=== PATIENT | male | born 1955 | race Caucasian/White ===

== ENCOUNTER 2020-01-08 07:25 | Outpatient (CLI) | payer OTHER, SELFPAY ==
--- NOTE | ~2020-01-08 | XR_ITS ---
EXAMINATION: XR lumbar spine 2-3V, XR thoracic spine 3V DATE: 01/08/2020 08:01 INDICATION: Chronic back pain, lumbago and sciatica. TECHNIQUE: 1. AP, lateral and lateral swimmers views of the thoracic spine were obtained. 2. AP and lateral views of the lumbar spine and cone-down lateral view of the lumbosacral junction we re obtained. COMPARISON: CT abdomen dated 05/20/2019 and chest radiograph dated 02/28/2014 FINDINGS: Thoracic spine: Alignment is normal. Chronic mild anterior wedging at T10-T12. Disc heights are normal. There are benson dging osteophytes at a few levels in the lower thoracic spine. Chronic elevation of the left hemidiap hragm. Lumbar spine: 7 degree lumbar levocurvature. Sagittal alignment is normal. Vertebral body heights are normal. Disc spaces are normal. Moderate lower lumbar facet osteoarthritis. Sacrum and bilateral sacroiliac joints are normal. Multiple phleboliths in the pelvis. Bilateral nephrolithiasis. IMPRESSION: 1. Chronic mild anterior wedging of a few lower thoracic vertebral bodies. No acute osseous abnormali ty. 2. Mild lumbar levocurvature with moderate lower lumbar facet osteoarthritis. 3. Bilateral nephrolithiasis. Reviewed, dictated and finalized at location A. IMPRESSION: 1. Chronic mild anterior wedging of a few lower thoracic vertebral bodies. No a cute osseous abnormality. 2. Mild lumbar levocurvature with moderate lower lumbar facet osteoarthritis. 3. Bilateral nephrolithiasis.
== END 2020-01-08 07:26 | disposition home or self-care (01) ==
PROVIDERS: PCP Internal Medicine; Visit Provider Internal Medicine
DX: M54.40 Lumbago with sciatica, unspecified side (principal); G89.29 Other chronic pain; N20.0 Calculus of kidney; M51.36 Other intervertebral disc degeneration, lumbar region
CPT/HCPCS: 72072; 72100

== ENCOUNTER 2021-02-24 23:48 | Emergency (ER) | payer OTHER, SELFPAY ==
[2021-02-24 23:57] VITALS: BP 178/88; PULSE 59; RESP 17; TEMP 36.4; O2SAT 100
[2021-02-25] MEDS: diazePAM INJ (*CRX) 10 MG/2 ML SYRINGE 5 MG IV PUSH (01:52)
[2021-02-25] MEDS: KETOROLAC 30 MG/ML VIAL (*BKC) IV PUSH (01:52)
[2021-02-25] MEDS: SODIUM CHLORIDE 0.9% IV 1,000 ML 999 ML IV CONT (01:53)
[2021-02-25 01:59] VITALS: BP 115/69; PULSE 61; RESP 16; TEMP 36.6; O2SAT 100
--- NOTE | 2021-02-25 02:52 | ED.NECK ---
HPI - Neck Pain/Injury General Chief Complaint: Neck Pain/Injury Stated Complaint: neck pain Time Seen by Provider: 02/25/21 01:01 History of Present Illness HPI Narrative: Patient is a 65-year-old male who presents ER with neck pain. Began a couple days ago on his left side and has since progressed to be bilateral. Increases in pain with trying to turn his head. He is tried ibuprofen with Tylenol as well as some cyclobenzaprine without relief of discomfort. He is also tried some leftover Vicodin without relief. No numbness or tingling to the arms/legs. No focal weakness. Denies any fevers or chills or sweats. No recent trauma. Related Data Home Medications Medication Instructions Recorded Confirmed aspirin 325 mg tablet 325 mg PO DAILY 08/09/19 11/23/20 cyanocobalamin (vitamin B-12) 1,000 mcg PO DAILY 07/04/20 11/23/20 1,000 mcg tablet Allergies Allergy/AdvReac Type Severity Reaction Status Date / Time Sulfa (Sulfonamide Allergy Unknown Rash Verified 11/23/20 07:59 Antibiotics) sulfanilamide Allergy Unknown Rash and Verified 11/23/20 07:59 severe headache Review of Systems Review of Systems: All systems reviewed & are unremarkable except as noted in HPI and below Constitutional: Constitutional: Denies chills, Denies fever(s) and Denies weakness Cardiovascular: Cardiovascular: Denies chest pain and Denies radiating jaw, neck or arm pain Musculoskeletal: Musculoskeletal: Denies back pain, Denies arthralgias, Denies joint swelling and Reports muscle cramps Neurologic: Denies headache(s), Denies focal weakness and Denies numbness [facility] Past Medical History Medical History (Updated 02/25/21 @ 02:55 by Zac Schneider MD) Anxiety Benign essential hypertension BMI 40.0-44.9, adult Chronic low back pain Encounter for routine adult health examination without abnormal findings Granuloma annulare History of kidney stones Hyperlipidemia 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 HEAD: Normocephalic, atraumatic. NECK: Supple. Bilateral paraspinal muscular tenderness of the cervical spine near C3. No midline tenderness. Limited range of motion due to pain. CHEST: Clear to auscultation. No respiratory distress. HEART: Regular rate and rhythm. Normal peripheral pulses.s. EXTREMITIES: Normal range of motion. No edema. SKIN: Warm, dry, annular granuloma rash to the elbows. NEURO: No focal deficits. Alert and oriented x3. PSYCH: Normal mood and affect. Course Course Emergency Course: Significant improvement in pain with Valium and Toradol and IV fluid. Discharge home with supportive therapy. Vital Signs Vital signs: Vital Signs Temperature 97.6 F 02/24/21 23:57 Pulse Rate 59 L 02/24/21 23:57 Respiratory Rate 17 02/24/21 23:57 Blood Pressure 178/88 H 02/24/21 23:57 Pulse Oximetry 100 02/24/21 23:57 Temperature 97.9 F 02/25/21 01:59 Pulse Rate 61 02/25/21 01:59 Respiratory Rate 16 02/25/21 01:59 Blood Pressure 115/69 02/25/21 01:59 Pulse Oximetry 100 02/25/21 01:59 Discharge Plan Discharge Clinical Impression: Cervical strain Patient Disposition: Home, Self-Care Condition: Stable Instructions: Cervical Strain (ED) Additional Instructions: Return to the ER if you have increased pain in your back/neck, you dev
[2021-02-25 03:54] VITALS: BP 122/79; PULSE 61; RESP 18; TEMP 36.7; O2SAT 100
== END 2021-02-25 03:55 | disposition home or self-care (01) ==
PROVIDERS: Emergency Provider Emergency Medicine; PCP Internal Medicine
DX: S16.1XXA Strain of muscle, fascia and tendon at neck level, initial encounter (principal); I10 Essential (primary) hypertension; E78.5 Hyperlipidemia, unspecified; Z79.82 Long term (current) use of aspirin; X58.XXXA Exposure to other specified factors, initial encounter
CPT/HCPCS: 96361; 96374; 96375; 99284; J1885; J3360; J7030

== ENCOUNTER 2021-03-28 08:53 | Outpatient (CLI) | payer OTHER, SELFPAY ==
--- NOTE | 2021-03-28 09:00 | ECG_ITS ---
Measurements Intervals [place] Rate: 73 P: 55 [place]: 156 QRS: -64 QRSD: 153 T: 28 QT: 410 QTc: 453 Interpretive Statements SINUS RHYTHM RIGHT BUNDLE BRANCH BLOCK LEFT ANTERIOR FASCICULAR BLOCK VOLTAGE CRITERIA FOR LVH ABNORMAL ECG Electronically Signed On 03-28-2021 9:54:13 CDT by Joel Dunn D.O.
[2021-03-28 09:58] LABS: Anion Gap 8 mmol/L (8-16); Blood Urea Nitrogen 16 mg/dL (9-20); Calcium 9.4 mg/dL (8.4-10.2); Carbon Dioxide 28 mmol/L (22-30); Chloride 100 mmol/L (98-107); Estimated Glomerular Filt Rate 51; Glucose 101 mg/dL (65-110); Potassium 3.8 mmol/L (3.4-5.0); Sodium 136 mmol/L (137-145)
== END 2021-03-28 08:54 | disposition home or self-care (01) ==
LOC: ANHSURGERY 08:53
PROVIDERS: Anesthesiology; PCP Internal Medicine; Visit Provider Urology
DX: I10 Essential (primary) hypertension (principal); Z79.899 Other long term (current) drug therapy; I45.10 Unspecified right bundle-branch block; I44.4 Left anterior fascicular block
CPT/HCPCS: 36415; 80048; 93005

== ENCOUNTER 2021-03-29 00:44 | Day surgery (SDC) | payer OTHER, SELFPAY ==
[2021-03-27 14:49] VITALS: BMI 39.4
--- NOTE | 2021-03-27 15:06 | PM.HPGS ---
History of Present Illness History of Present Illness Consent: Risks, benefits, and alternatives have been discussed and questions answered. Patient agrees to proceed with procedure. Chief complaint: right ureteral stone Narrative: Amor Longo is a 65 year old male Known to our practice with a history of recurring urolithiasis. Recently presented with right flank pain. Outpatient axial imaging demonstrated obstructing 6 mm right distal ureteral calculus and bilateral nonobstructing renal calculi. After discussion of options including medical expulsive therapy, endoscopic stone extraction, lithotripsy, he has elected for ureteroscopy with stone extraction. He is aware this may require laser lithotripsy and possible stent placement. As with risk including, but not limited to, adverse cardiopulmonary events, ureteral injury, need for ureteral stenting. Review of Systems Cardiovascular: Cardiovascular: Denies chest pain, Denies lightheadedness, Denies palpitations and Denies dyspnea Respiratory: Respiratory: Denies dyspnea Gastrointestinal: Gastrointestinal: Denies diarrhea, Denies nausea and Denies vomiting Genitourinary: Genitourinary: Denies hematuria and Denies dysuria Endocrine: Endocrine: Denies palpitations PMFSH Past Medical History Medical History Anxiety Benign essential hypertension BMI 40.0-44.9, adult Chronic low back pain Encounter for routine adult health examination without abnormal findings Granuloma annulare History of kidney stones Hyperlipidemia Kidney stone On [facility] drug therapy Palpitations Pre-diabetes PVCs (premature ventricular contractions) Sciatica of right side Scoliosis Varicosities of leg Vitreous floaters of right eye Family History Family History Father Family history of coronary artery disease Mother Family history of chronic obstructive pulmonary disease Social History Social History Smoking status: Never smoker Second hand tobacco smoke exposure: Yes Alcohol intake: current Meds Home Medications and Allergies Home Medications Medication Instructions Recorded Confirmed Type aspirin 325 mg tablet 325 mg PO DAILY 08/09/19 03/27/21 History cyanocobalamin (vitamin B-12) 1,000 mcg PO DAILY 07/04/20 03/27/21 History 1,000 mcg tablet folic acid 1 mg tablet 1 mg PO DAILY #90 tablet 07/04/20 03/27/21 Rx bupropion HCl 150 mg 24 hr tablet, See Rx Instructions .ROUTE 07/17/20 03/27/21 Rx extended release .COMPLEX #90 tablet metoprolol succinate 50 mg See Rx Instructions .ROUTE 08/28/20 03/27/21 Rx tablet,extended release 24 hr .COMPLEX #90 tablet allopurinol 300 mg tablet See Rx Instructions .ROUTE 09/01/20 03/27/21 Rx .COMPLEX #90 tablet hydrochlorothiazide 12.5 mg tablet See Rx Instructions .ROUTE 09/27/20 03/27/21 Rx .COMPLEX #90 tablet lisinopril 20 mg tablet See Rx Instructions .ROUTE 10/26/20 03/27/21 Rx .COMPLEX #90 tablet atorvastatin 10 mg tablet See Rx Instructions .ROUTE 12/29/20 03/27/21 Rx .COMPLEX #90 tablet cyclobenzaprine 10 mg PO TID PRN #10 tablet 02/25/21 03/27/21 Rx hydrocodone 7.5 mg-acetaminophen 1 tablet PO Q4-6H PRN #35 tablet 03/26/21 03/27/21 Rx 325 mg tablet tamsulosin 0.4 mg capsule 0.4 mg PO DAILY #14 cap 03/26/21 03/27/21 Rx Allergies Allergy/AdvReac Type Severity Reaction Status Date / Time Sulfa (Sulfonamide Allergy Unknown Rash Verified 03/27/21 14:45 Antibiotics) Exam Const: General: no acute distress Resp: Effort & Inspection: normal respiratory effort GI: Inspection: non-distended GI Palp: No abdominal tenderness and No Guarding due to palpation present (GI) Auscultation: normal bowel sounds Assessment and Plan Assessment and plan (1) Right ureteral stone: Code(s): N20.1 - Calculus of ureter Status: Acute
--- NOTE | 2021-03-28 14:54 | WPDANESEPPF ---
Anes - Initial Pre Proc Eval Procedure: Operation Date: 03/29/21 12:30 Proposed Procedures p Cystoscopy, Right Ureteroscopy, Possible Stone Extraction, Stent Placement - Alber Avelar MD s Possible Holmium Laser Procedure, Stent Placement - Alber Avelar MD Date/Time: 03/28/21 14:54 Surgeon: Alber Avelar MD Pre Op Diagnosis: right ureteral stone Patient Data Age: 65 Gender: M Height: 1.83 m Weight: 131.81 kg Allergies Allergy/AdvReac Type Severity Reaction Status Date / Time Sulfa (Sulfonamide Allergy Unknown Rash Verified 03/29/21 10:50 Antibiotics) Home Medications Medication Instructions Recorded Confirmed Type aspirin 325 mg tablet 325 mg PO DAILY 08/09/19 03/27/21 History cyanocobalamin (vitamin B-12) 1,000 mcg PO DAILY 07/04/20 03/27/21 History 1,000 mcg tablet folic acid 1 mg tablet 1 mg PO DAILY #90 tablet 07/04/20 03/27/21 Rx bupropion HCl 150 mg 24 hr tablet, See Rx Instructions .ROUTE 07/17/20 03/29/21 Rx extended release .COMPLEX #90 tablet metoprolol succinate 50 mg See Rx Instructions .ROUTE 08/28/20 03/29/21 Rx tablet,extended release 24 hr .COMPLEX #90 tablet allopurinol 300 mg tablet See Rx Instructions .ROUTE 09/01/20 03/27/21 Rx .COMPLEX #90 tablet hydrochlorothiazide 12.5 mg tablet See Rx Instructions .ROUTE 09/27/20 03/27/21 Rx .COMPLEX #90 tablet lisinopril 20 mg tablet See Rx Instructions .ROUTE 10/26/20 03/27/21 Rx .COMPLEX #90 tablet atorvastatin 10 mg tablet See Rx Instructions .ROUTE 12/29/20 03/27/21 Rx .COMPLEX #90 tablet cyclobenzaprine 10 mg PO TID PRN #10 tablet 02/25/21 03/27/21 Rx hydrocodone 7.5 mg-acetaminophen 1 tablet PO Q4-6H PRN #35 tablet 03/26/21 03/27/21 Rx 325 mg tablet tamsulosin 0.4 mg capsule 0.4 mg PO DAILY #14 cap 03/26/21 03/27/21 Rx Patient hx anesthesia problems: none Family hx anesthesia problems: none PMFSH Past Medical History Medical History Anxiety Benign essential hypertension BMI 40.0-44.9, adult Chronic low back pain Encounter for routine adult health examination without abnormal findings Granuloma annulare History of kidney stones Hyperlipidemia Kidney stone On half-way drug therapy Palpitations Pre-diabetes PVCs (premature ventricular contractions) Sciatica of right side Scoliosis Varicosities of leg Vitreous floaters of right eye Family History Family History Father Family history of coronary artery disease Mother Family history of chronic obstructive pulmonary disease Social History Social History Smoking status: Never smoker Second hand tobacco smoke exposure: Yes Alcohol intake: current Alcohol use details: STATES MAYBE 2 DRINKS A MONTH Substance use: never Substance use type: does not use Living arrangements: with family Spiritual care concerns: No Anes - Eval Final PreProcedure Day of Procedure 03/28/21 14:54 Patient weight: obese Heart: regular rate and rhythm Lungs: clear to auscultation and normal air movement Airway: Mallampati scale class II Neurological: alert and oriented Last oral intake: >/= 8 hours ASA classification: III Emergent: no Anesthetic plan: proceed Anesthesia type and monitoring: general LMA Informed Consent: The patient's anesthetic plan and its attendant risks and benefits were discussed with the patient/family/POA. Questions were solicited and answers provided to the satisfaction of the patient/family/POA.
[2021-03-29] VITALS (7 sets, daily range): BP systolic 117–156; BP diastolic 65–85; PULSE 78–91; RESP 14–19; TEMP 36.3–36.4; O2SAT 97–100; BMI 40.2
--- NOTE | ~2021-03-29 | XR_ITS ---
EXAMINATION: XR retrograde pyelo w/stent RT DATE: 03/29/2021 12:43 INDICATION: Right ureteral stone. TECHNIQUE: 6 intraoperative fluoroscopic views of the abdomen and pelvis were obtained. I was not pre sent. Fluoroscopy exposure time was 21 seconds. COMPARISON: CT abdomen 05/20/2019 FINDINGS: The visualized portions of the right-sided retrograde pyelogram is unremarkable. The final images demonstrate a right internal ureteral stent in expected position. IMPRESSION: 1. Right internal ureteral stent in expected position. Reviewed, dictated and finalized at location A.
[2021-03-29] MEDS: LACTATED RINGERS 1,000 ML 30 ML IV CONT (11:18)
--- NOTE | 2021-03-29 11:59 | WPDHPUPDATE1 ---
History and Physical Update Update Date/Time: 03/29/21 11:59 History and Physical has been reviewed, including an updated exam of the patient. There are NO changes in the patient's condition. Risks, benefits, and alternatives have been discussed and questions answered. Patient agrees to proceed with procedure.
[2021-03-29] MEDS: ceFAZolin 3 GM/D5W 100 ML 100 ML IVPB (12:04)
[2021-03-29] MEDS: LIDOCAINE HCL 2% GEL UROJET 10 ML PKG MUCOUS MEM (12:30)
--- NOTE | 2021-03-29 12:38 | W.PM.PROC2 ---
Procedure Note - Detailed Date of Procedure 03/29/21 Pre-op Diagnosis right ureteral stone Post-op Diagnosis same Procedure Performed Cystoscopy, right retrograde pyelography, right ureteroscopy with laser lithotripsy, stone extraction and stent placement Surgeon Alber Avelar MD Anesthesia general Findings Impacked it 6 mm right distal ureteral calculus Description of Procedure Patient brought to the operative suite years prepped draped in routine sterile fashion while in dorsal lithotomy position. After the uneventful induction of general anesthetic cystoscopy is undertaken with a 19 F rigid cystoscope. Urethra is endoscopically normal. Prostate shows very mild lateral lobe hyperplasia without a median lobe. Bladder is minimally trabeculated. Bladder mucosa is normal without hyperemia. There is no intravesical foreign body neoplasm. 0.035 in glidewire was advanced into the right renal pelvis in the distal ureter was dilated with an 8 F 10 F dilator. Ureteroscopy was undertaken with a short 2% rigid ureteral scope. Retrograde pyelogram was obtained to outline renal pelvis to ensure stent placement proper position at the termination of the procedure. He has impacted 6 mm stone. Laser lithotripsy was undertaken with a 273 micron fiber. Fragments were all extracted completely in a 4.8 F double-J ureteral stent is positioned appropriately. Patient tolerated procedure well was taken recovery room good condition. Drains No Packing No Pathology yes Complications No immediate complications Condition stable Disposition PACU
== END 2021-03-29 14:34 | disposition home or self-care (01) ==
PROVIDERS: PCP Internal Medicine; Visit Provider Urology
PROC: (CPT 52352; principal; 2021-03-29 12:30)
PROC: (CPT 52356; 2021-03-29 12:30)
DX: N20.1 Calculus of ureter (principal); I10 Essential (primary) hypertension; E78.5 Hyperlipidemia, unspecified; R73.03 Prediabetes; I49.3 Ventricular premature depolarization; F41.9 Anxiety disorder, unspecified; Z79.82 Long term (current) use of aspirin; E66.01 Morbid (severe) obesity due to excess calories; Z68.41 Body mass index [BMI] 40.0-44.9, adult
CPT/HCPCS: 52356; 74420; 82365; 88300; A9270; C1758; C1769; C2617; J0690; J2250; J2405; J2704; J3010; J7120; Q9966

== ENCOUNTER 2021-04-02 12:30 | Outpatient (CLI) | payer OTHER, SELFPAY ==
--- NOTE | ~2021-04-02 | XR_ITS ---
XR cervical spine 4-5V DATE: 04/02/2021 12:48 INDICATION: Neck pain radiating up to the skull TECHNIQUE: Flexion and extension lateral views. AP, open-mouth, odontoid and lateral views COMPARISON: None FINDINGS: There is straightening of the cervical spine. C1 and C2 are normally aligned and the odonto id process is intact. No fracture or dislocation or locked facet or prevertebral soft tissue swelling . Cervical interspaces are well preserved. There is no instability on flexion or extension. IMPRESSION: Straightening; otherwise negative L-spine Reviewed, dictated and finalized at location A.
== END 2021-04-02 12:31 | disposition home or self-care (01) ==
LOC: ANHIMG 12:32
PROVIDERS: PCP Internal Medicine; Visit Provider Internal Medicine
DX: M54.2 Cervicalgia (principal)
CPT/HCPCS: 72050

== ENCOUNTER 2021-04-13 13:21 | Outpatient (CLI) | payer OTHER, SELFPAY ==
--- NOTE | ~2021-04-13 | XR_ITS ---
XR abdomen/kub 1V 04/13/2021 13:35 Indication: Bilateral renal stones Procedure: KUB Comparison: 12/26/2005 Findings: There are multiple bilateral renal stones. Bowel pattern nonobstructive. Moderate colonic f ecal loading. There are pelvic phleboliths. Mild levoscoliosis of the lumbar spine. No acute osseous abnormality. Impression: 1: Bilateral nephrolithiasis. Reviewed, dictated and finalized at location A. Impression: 1: Bilateral nephrolithiasis.
== END 2021-04-13 13:22 | disposition home or self-care (01) ==
LOC: ANHIMG 13:26
PROVIDERS: PCP Internal Medicine; Visit Provider Urology
DX: N20.0 Calculus of kidney (principal)
CPT/HCPCS: 74018

== ENCOUNTER 2022-03-08 10:25 | Outpatient (CLI) | payer OTHER, SELFPAY ==
--- NOTE | ~2022-03-08 | XR_ITS ---
XR ribs BI 3V w CXR 2V DATE: 03/08/2022 10:52 INDICATION: Cough. Bilateral rib pain for 3 weeks. TECHNIQUE: PA and lateral chest. 3 views of right ribs. 3 views of left ribs. COMPARISON: 02/28/2014 PA and lateral chest FINDINGS: Normal heart size. No hilar or mediastinal enlargement. No pulmonary infiltrate or consolid ation, pleural effusion or pulmonary vascular congestion or pneumothorax. Degenerative spurring and mild dextroscoliosis of the thoracic spine. No fracture or bone destruction of left or right ribs. IMPRESSION: No active cardiopulmonary disease No rib fracture or bone destruction is detected Reviewed, dictated and finalized at location A.
[2022-03-08 11:05] LABS: Basophils Absolute Auto 0.1 K/mm3 (0.0-0.1); Basophils Percent Auto 0.7 % (0.2-1.2); Eosinophils Absolute Auto 0.2 K/mm3 (0-0.3); Eosinophils Percent Auto 2.3 % (0-4.4); Hematocrit 41.3 % (42.0-52.0); Hemoglobin 13.9 g/dL (14.0-18.0); Immature Granulocyte Absolute 0.03 K/mm3 (0.00-0.031); Immature Granulocyte Percent A 0.4 % (0-0.5); Lymphocytes Absolute Auto 2.12 K/mm3 (0.9-3.2); Lymphocytes Percent Auto 25.5 % (18.3-44.2); Mean Corpuscular HGB Conc 33.7 g/dl (32-36); Mean Corpuscular Volume 95.2 fl (80-100); Mean Platelet Volume 11.5 fl (7.4-10.4); Monocytes Absolute Auto 0.9 K/mm3 (0.1-0.6); Monocytes Percent Auto 10.8 % (2.6-8.5); Neutrophils Percent Auto 60.3 % (45.5-73.1); Platelet Count Result 245 k/mm3 (150-375); Red Blood Count 4.34 M/mm3 (4.6-6.20); Red Cell Distribution Width 13.7 % (11.5-14.5); White Blood Count 8.3 K/mm3 (4.5-10.0)
== END 2022-03-08 10:26 | disposition home or self-care (01) ==
LOC: ANHIMG 10:27
PROVIDERS: PCP Internal Medicine; Visit Provider Internal Medicine
DX: R05.9 Cough, unspecified (principal)
CPT/HCPCS: 36415; 71046; 71110; 85025

== ENCOUNTER 2022-08-07 11:49 | Outpatient (CLI) | payer OTHER, SELFPAY ==
--- NOTE | ~2022-08-07 | XR_ITS ---
Right Shoulder Technique: AP and scapular Y views were obtained. Clinical History: Pain Findings: No fracture or dislocation is seen. Osseous alignment is anatomic. The glenohumeral and acr omioclavicular joint spaces are preserved. Soft tissues are unremarkable. Impression: Unremarkable right shoulder radiographs. Reviewed, dictated and finalized at location [] L SOCIOLOGIST Impression: Unremarkable right shoulder radiographs.
--- NOTE | ~2022-08-07 | XR_ITS ---
AP weightbearing and nonweightbearing views of the bilateral shoulders/AC joints was performed. Clinical history: Right shoulder pain FINDINGS: No fracture or dislocation is identified. No instability or abnormal alignment evident on w eightbearing views as compared to nonweightbearing views. Osseous alignment is stable. Glenohumeral a nd AC joints appear intact. Soft tissues are unremarkable. IMPRESSION: Unremarkable exam. Reviewed, dictated and finalized at location [] TRUCTION PROJECT ENGINEER IMPRESSION: Unremarkable exam.
== END 2022-08-07 11:50 | disposition home or self-care (01) ==
PROVIDERS: PCP Internal Medicine; Visit Provider Internal Medicine
DX: M25.511 Pain in right shoulder (principal); M75.00 Adhesive capsulitis of unspecified shoulder
CPT/HCPCS: 73030; 73050

== ENCOUNTER 2022-12-02 15:20 | Outpatient (CLI) | payer BC, SELFPAY ==
[2022-12-02 16:49] LABS: Anion Gap 7 mmol/L (8-16); Blood Urea Nitrogen 21 mg/dL (9-20); Calcium 8.6 mg/dL (8.4-10.2); Carbon Dioxide 25 mmol/L (22-30); Chloride 105 mmol/L (98-107); Estimated Glomerular Filt Rate > 60; Glucose 100 mg/dL (65-110); Magnesium 2.1 mg/dL (1.6-2.3); Potassium 4.4 mmol/L (3.4-5.0); Sodium 137 mmol/L (137-145)
[2022-12-02 17:22] LABS: Free T4 Free Thyroxine 1.02 ng/mL (0.78-2.19)
--- NOTE | 2022-12-12 11:55 | WPDHOLTEREM ---
Holter/Event Monitor Holter/Event Monitor Date of procedure: 12/02/22 Holter/Event Procedure: 48 Hr Holter Monitor Indications: Cardiac arrhythmias Conclusion: 1. 48 hour holter monitor on 12/02/22. 2. Predominant rhythm is sinus rhythm. HR range 42-110 bpm; average HR 76 bpm. 3. There are 17,200 premature supraventricular complexes, 54 supraventricular couplets, 4,408 supraventricular bigeminy and 7,278 supraventricular trigeminy. There are 45 episodes of atrial tachycardia, fastest at 138 bpm and longest lasted 11 beats. 4. There are 304 premature ventricular complexes and 8 ventricular couplets. No ventricular tachycardia. 5. No sinoatrial or atrioventricular blocks. No significant pauses greater than 2 seconds. 6. No symptoms available for correlation.
== END 2022-12-02 15:21 | disposition home or self-care (01) ==
LOC: ANHLAB 15:22
PROVIDERS: PCP Internal Medicine; Visit Provider Internal Medicine
DX: I49.8 Other specified cardiac arrhythmias (principal); I49.3 Ventricular premature depolarization; R00.2 Palpitations; Z79.899 Other long term (current) drug therapy
CPT/HCPCS: 36415; 80048; 83735; 84439; 84443; 93225; 93226

== ENCOUNTER 2023-10-14 06:27 | Observation (INO) | payer BC, SELFPAY ==
[2023-10-14] VITALS (28 sets, daily range): BP systolic 131–161; BP diastolic 71–96; PULSE 57–88; RESP 13–22; TEMP 35.8–36.5; O2SAT 95–99; BMI 40.0
--- NOTE | 2023-10-14 | ECHO_ITS ---
Patient Info Name: Amor Longo Age: 67 years : 1955 Gender: Male Ht: 72 in Wt: 295 lbs BSA: 2.66 m2 HR: 66 bpm BP: 141 / 71 mmHg Heart Rhythm: Sinus Rhythm Technical Quality: Fair Exam Date: 10/14/2023 2:04 PM Exam Location: Echo Lab Patient Status: Outpatient Admit Date: 10/14/2023 Staff Ordering Physician: Artem Diaz MD Seismograph Shooter: Rich Lindsey RDCS Attending Provider: Андрей Riojas MD Exam Type: CA echo dop bubble study w con Study Info Indications - TIA Complete two-dimentional, color flow and Doppler transthoracic echocardiogram is performed with agitated saline and with contrast to opacify the left ventricle and to improve the delineation of the left ventricle endocardial borders. Contrast/Agitated Saline Contrast/Ag. Saline: Definity Amount: 3.00 ml Summary 1. Definity contrast administered improved wall motion interpretation. 2. Left ventricular chamber dimension is normal. 3. Left ventricular systolic function is normal, estimated at 60-65%. 4. There is mild concentric increased left ventricular wall thickness. 5. The left ventricular diastolic function is grade I diastolic dysfunction. 6. Tissue doppler E/e' is not perfermed. 7. Left atrial chamber dimension is mildly enlarged. 8. The aortic valve is not well visualized. Cannot determine number of aortic valve leaflets. 9. There is moderate aortic valve sclerosis. 10. The mitral valve has moderately calcified annulus. 11. No pulmonary hypertension, estimated pulmonary arterial systolic pressure is 26 mmHg. Left Ventricle Definity contrast administered improved wall motion interpretation. Left ventricular chamber dimension is normal. Left ventricular systolic function is normal, estimated at 60-65%. There is mild concentric increased left ventricular wall thickness. The left ventricular diastolic function is grade I diastolic dysfunction. Tissue doppler E/e' is not perfermed. Right Ventricle Right ventricular systolic function is normal and with normal TAPSE 2.8 cm. Right ventricular chamber dimension is normal. Left Atria Left atrial chamber dimension is mildly enlarged. Right Atria Right atrial chamber dimension is normal. Atrial Septum Agitated saline injection with and without valsalva maneuver opacified right side cardiac chambers without shunt to left side cardiac chambers. Intact interatrial septum visualized by 2D and agitated saline imaging. Aortic Valve The aortic valve is not well visualized. Cannot determine number of aortic valve leaflets. There is moderate aortic valve sclerosis. There is no aortic valve stenosis. There is no aortic valve regurgitation. Pulmonic Valve There is no pulmonic regurgitation. Mitral Valve The mitral valve has moderately calcified annulus. There is no mitral valve stenosis. There is no mitral valve regurgitation. Tricuspid Valve There is no tricuspid valve regurgitation. No pulmonary hypertension, estimated pulmonary arterial systolic pressure is 26 mmHg. Pericardium/Pleural There is no pericardial effusion. Inferior Vena Cava Normal inferior vena cava with >50% collapse upon inspiration consistent with normal right atrial pressure, 5 mmHg. Aorta The aortic root size at the sinus of Valsalva is normal. Left Ventricular Outflow Tract Name Value Normal LVOT 2D
--- NOTE | ~2023-10-14 | XR_ITS ---
Portable chest x-ray Comparison: 03/08/2022 Clinical History: CVA Findings: Lungs are clear, without focal consolidation or pleural effusion. Cardiomediastinal silho uette is stable. Bones and soft tissues are unremarkable. Impression: Clear lungs. Reviewed, dictated and finalized at [facility]. RATOR SWITCHBOARD OPERATOR Impression: Clear lungs.
--- NOTE | ~2023-10-14 | MR_ITS ---
MRI of the brain Clinical History: TIA Technique: Axial and sagittal T1-weighted images were acquired. These were followed by axial T2-weigh charlee, diffusion weighted, gradient, and FLAIR images. Following intravenous administration of 20 cc Mu ltiHance gadolinium, T1-weighted fat-sat imaging was performed in the axial, coronal planes. Findings: There is an acute to subacute infarct in the right paramedian kenney, with associated restric charlee diffusion is region. No intracranial hemorrhage identified. No other significant signal abnormali ty seen in the remainder of the brain. Ventricles and subarachnoid spaces are unremarkable. Orbits are unremarkable. Paranasal sinuses and m astoid air cells are clear. Major intracranial flow voids are intact. Sagittal midline structures are intact. No abnormal postcontrast enhancement identified. IMPRESSION: Acute infarct in the right paramedian kenney. Reviewed, dictated and finalized at [facility]. TH SAFETY SPECIALIST IMPRESSION: Acute infarct in the right paramedian kennye.
--- NOTE | ~2023-10-14 | CT_ITS ---
CT ANGIOGRAM NECK AND HEAD History: CVA. Technique: Serial spiral axial images through the head and neck were obtained during arterial phase I V injection of 100 cc of Omnipaque 350. 3-D postprocessing and MIP images were then reconstructed on the remote workstation. Dose reduction technique was used on this scan by utilizing automated exposur e control and iterative reconstruction technique. The dose-length product (DLP) was 1329.28 mGy-cm. CTA neck findings: Bilateral vertebral artery are patent. Bilateral common carotid, internal carotid , and external carotid arteries are patent. No large vessel occlusion. No stenosis or aneurysm. The p roximal right internal carotid artery demonstrates 0% stenosis relative to the normal distal artery l umen diameter. The proximal left internal carotid artery demonstrates 0% stenosis relative to the nor mal distal artery lumen diameter. CTA head findings: Distal vertebral arteries, basilar artery, and posterior cerebral arteries are pat ent. Distal internal carotid arteries, middle cerebral arteries, and anterior cerebral arteries are p atent. No large vessel occlusion. No stenosis or aneurysm. Impression: Unremarkable exam. Reviewed, dictated and finalized at location M. TOR CRANE OPERATOR Impression: Unremarkable exam.
--- NOTE | ~2023-10-14 | US_ITS ---
EXAMINATION: US carotid duplex BI DATE: 10/14/2023 12:46 INDICATION: Transient ischemic episode. Cerebral atherosclerosis. TECHNIQUE: Grayscale, color Doppler, and pulsed Doppler images of the cervical carotid arteries were obtained. The degree of vessel stenosis is placed in one of the following categories: normal, <50%, 5 0-69%, >=70% but less than near-occlusion, near-occlusion, or total occlusion. Note that percent sten osis relative to normal distal artery lumen diameter is indirectly measured from velocity measurement s as described by Ozzy, et al. Radiology 2003; 229:340-346. COMPARISON: None. FINDINGS: RIGHT: The right common carotid artery (CCA) peak systolic velocity (PSV) is 105 cm/s. The right internal ca rotid artery (ICA) PSV is 68 cm/s. The right ICA end-diastolic velocity (EDV) is 25 cm/s. The right I CA/CCA PSV ratio is 0.7. Grayscale and color Doppler images yield an estimate of <50% diameter reduct ion from plaque in the ICA. The external carotid artery (ECA) PSV is 104 cm/s. There is antegrade ezra w in the right vertebral artery. LEFT: The left CCA PSV is 126 cm/s. The left ICA PSV is 88 cm/s. The left ICA EDV is 19 cm/s. The left ICA/ CCA PSV ratio is 0.7. Grayscale and color Doppler images yield an estimate of <50% diameter reduction from plaque in the ICA. The ECA PSV is 110 cm/s. There is antegrade flow in the left vertebral arter y. IMPRESSION: 1. <50% stenosis in the right internal carotid artery. 2. <50% stenosis in the left internal carotid artery. Reviewed, dictated and finalized at location A. E LDR
--- NOTE | ~2023-10-14 | CT_ITS ---
Non-contrast Head CT History: CVA Technique: Axial non-contrast imaging of the brain was performed. Dose reduction technique was used on this scan by utilizing automated exposure control and iterative reconstruction technique. The dose -length product (DLP) was 681.00 mGy-cm. Findings: There is no evidence of intracranial hemorrhage, mass lesion, or acute infarct. Brain par enchyma appears normal. The ventricles and subarachnoid spaces are normal in size. The calvarium ap pears normal. The visualized paranasal sinuses and mastoid air cells are clear. Impression: No significant abnormality seen. Case discussed with Dr. Sidhu at 6:45 AM on 10/14/2023. Reviewed, dictated and finalized at [facility]. LINE WORKER Impression: No significant abnormality seen. Case discussed with Dr. Sidhu at 6:45 AM on 10/14/2023.
--- NOTE | 2023-10-14 06:31 | ECG_ITS ---
Measurements Intervals [place] Rate: 63 P: 71 [place]: 161 QRS: -59 QRSD: 153 T: 33 QT: 456 QTc: 469 Interpretive Statements SINUS RHYTHM RIGHT BUNDLE BRANCH BLOCK [120+ ms QRS DURATION, UPRIGHT V1, 40+ ms S IN I/aVL/V4/V5/V6] LEFT ANTERIOR FASCICULAR BLOCK [QRS AXIS <= -45, QR IN I, RS IN II] VOLTAGE CRITERIA FOR LVH [MEETS CRITERIA IN ONE OF: R(aVL), S(V1), R(V5), R(V5/V6)+S(V1)] COMPARED TO ECG 03/28/2021 09:19:24 NO SIGNIFICANT CHANGES Electronically Signed On 10-14-2023 15:31:46 [employer] SCARFER TENDER by Gisele Jackson M.D.
[2023-10-14 06:34] LABS: Glucose Point of Care 128 mg/dl (65-105)
[2023-10-14 06:49] LABS: Basophils Absolute Auto 0.1 K/mm3 (0.0-0.1); Basophils Percent Auto 0.6 % (0.2-1.2); Eosinophils Absolute Auto 0.1 K/mm3 (0-0.3); Eosinophils Percent Auto 1.1 % (0-4.4); Hematocrit 44.2 % (42.0-52.0); Hemoglobin 14.3 g/dL (14.0-18.0); Immature Granulocyte Absolute 0.04 K/mm3 (0.00-0.031); Immature Granulocyte Percent A 0.4 % (0-0.5); Lymphocytes Absolute Auto 2.02 K/mm3 (0.9-3.2); Lymphocytes Percent Auto 22.4 % (18.3-44.2); Mean Corpuscular HGB Conc 32.4 g/dl (32-36); Mean Corpuscular Hemoglobin 31.9 pg (26-34); Mean Corpuscular Volume 98.7 fl (80-100); Mean Platelet Volume 11.3 fl (7.4-10.4); Monocytes Absolute Auto 0.7 K/mm3 (0.1-0.6); Monocytes Percent Auto 7.8 % (2.6-8.5); Neutrophils Absolute Auto 6.1 K/mm3 (1.3-6.7); Neutrophils Percent Auto 67.7 % (45.5-73.1); Platelet Count Result 208 k/mm3 (150-375); Red Blood Count 4.48 M/mm3 (4.6-6.20); Red Cell Distribution Width 13.8 % (11.5-14.5)
[2023-10-14 06:58] LABS: Alanine Aminotransferase 22 U/L (6-50); Albumin Level 3.8 g/dL (3.5-5.1); Alkaline Phosphatase 96 U/L (38-126); Anion Gap 4 mmol/L (8-16); Aspartate Amino Transferase 26 U/L (17-59); Bilirubin,Total 0.8 mg/dL (0.2-1.3); Blood Urea Nitrogen 23 mg/dL (9-20); Carbon Dioxide 29 mmol/L (22-30); Chloride 104 mmol/L (98-107); Estimated CRCL calculation 92 ml/min; Estimated Glomerular Filt Rate > 60; Glucose 123 mg/dL (65-110); Potassium 3.8 mmol/L (3.4-5.0); Sodium 137 mmol/L (137-145)
[2023-10-14 06:59] LABS: INR 1.1; Prothrombin Time 14.8 Seconds (11.1-14.7)
[2023-10-14 07:00] LABS: Partial Thromboplastin Time 30.9 SECONDS (22.3-36.8)
[2023-10-14 07:03] LABS: Estimated CRCL calculation 84 ml/min; Estimated Glomerular Filt Rate > 60
[2023-10-14 07:24] LABS: Troponin I < 0.012 ng/mL (0.000-0.034)
--- NOTE | 2023-10-14 08:17 | ED.NEUROSD ---
HPI - Neuro Symptoms/Deficit General Chief Complaint: Neuro Symptoms/Deficit Stated Complaint: stroke like symptoms Time Seen by Provider: 10/14/23 06:56 Source: patient Mode of arrival: ambulatory Limitations: no limitations History of Present Illness HPI Narrative: 67-year-old with a history of hypertension here with a complaint of circumoral numbness and tingling sensation which started about 12 30 midnight. Patient states that soon after he started feeling numbness and tingling in his left lower extremity and some difficulty in ambulating. Patient stated that symptoms lasted for few minutes he thought he would take a bath while he was having a bath he started feeling very clumsy and he was unable to coordinate himself. By the time he came to the ER his symptoms much resolved. He presently denies having headache or weakness or chest pain. Onset (ago): hour(s) (6) Timing confirmed by: spouse Location: left leg History of same: Yes Context: sudden onset On Anticoagulants: No Associated symptoms: denies other symptoms Related Data Home Medications Medication Instructions Recorded Confirmed cyanocobalamin (vitamin B-12) 1,000 mcg PO DAILY 07/04/20 10/09/23 1,000 mcg tablet cholecalciferol (vitamin D3) 50 50 mcg PO DAILY 11/04/22 10/09/23 mcg (2,000 unit) capsule aspirin 325 mg tablet 325 mg PO DAILY 10/09/23 10/09/23 escitalopram oxalate 20 mg tablet 20 mg PO DAILY 10/09/23 10/09/23 Allergies Allergy/AdvReac Type Severity Reaction Status Date / Time Sulfa (Sulfonamide Allergy Unknown Rash Verified 10/14/23 06:49 Antibiotics) Review of Systems Review of Systems: All systems reviewed & are unremarkable except as noted in HPI and below Constitutional: Constitutional: Reports no additional constitutional complaints Eyes: Eyes: Reports no additional eye complaints ENT: Reports system reviewed and no additional complaints, except as documented Cardiovascular: Cardiovascular: Reports no additional cardiovascular complaints Gastrointestinal: Gastrointestinal: Reports no additional gastrointestinal complaints Musculoskeletal: Musculoskeletal: Reports no additional musculoskeletal complaints Neurologic: Reports as per HPI [facility] Past Medical History Medical History Anxiety Benign essential hypertension BMI 40.0-44.9, adult Cervicalgia Chronic low back pain Chronic right-sided thoracic back pain Dizziness Elevated glucose Encounter for preventive health examination Encounter for routine adult health examination without abnormal findings Fatigue Follow up Granuloma annulare Heart murmur History of kidney stones Hyperlipidemia Irregular heartbeat Kidney stone On nursing home drug therapy Palpitations Pre-diabetes Prostate cancer screening PVCs (premature ventricular contractions) RBBB (right bundle branch block) Renal cyst Right ureteral stone Ringworm Sciatica of right side Scoliosis Skin plaque Varicosities of leg Vitamin D deficiency Vitreous floaters of right eye Surgical History Surgical History S/P cataract surgery S/P hernia surgery Family History Family History Father Family history of coronary artery disease Mother Family history of chronic obstructive pulmonary disease Social History Social History Smoking status: Never smoker Second hand tobacco smoke exposure: Yes Alcohol intake: current Alcohol use details: STATES MAYBE 2 DRINKS A MONTH Substance use: never Substance use type: does not use Lack of Transportation: No Lack of Food: Never True Current Housing: I Have Housing Concerned About Future Housing: No Difficulty Paying Gas/Electric Bills: No Difficulty Paying for Meds: No Currently Unemployed: No Education: Associate Degree Diffi
[2023-10-14] MEDS: ASPIRIN 325 MG TABLET PO (08:29)
--- NOTE | 2023-10-14 08:38 | PC.NURSE ---
Up to bedside chair for comfort. Moves all extremities well. Speech clear.
--- NOTE | 2023-10-14 09:36 | ADMGEN ---
This patient, Amor Longo, was admitted to [facility] Surg Room 328-01 at 0925. Patient/family oriented to hospital policies and general routines including ID bracelet, bed and alarms, visiting hours, pain management, procedures, bathroom and other care routines, personal items, smoking policy, room service/diet, and visiting hours. Information on how to activate the Rapid Response Team has been discussed. Patient/Family are encouraged to report perceived risks to care and to ask questions if they do not understand what they are told or what they should do.
[2023-10-14] MEDS: FAMOTIDINE 20 MG/2 ML VIAL IV PUSH ×2 (10:56→19:47)
--- NOTE | 2023-10-14 11:19 | ADMGEN ---
This patient, Amor Longo, was admitted to [facility] Surg Room 328-01. Patient/family oriented to hospital policies and general routines including ID bracelet, bed and alarms, visiting hours, pain management, procedures, bathroom and other care routines, personal items, smoking policy, room service/diet, and visiting hours. Information on how to activate the Rapid Response Team has been discussed. Patient/Family are encouraged to report perceived risks to care and to ask questions if they do not understand what they are told or what they should do.
--- NOTE | 2023-10-14 11:32 | WPDNEURCNPN ---
Assessment and Plan Assessment and plan (1) Brain TIA: Code(s): G45.9 - Transient cerebral ischemic attack, unspecified Status: Acute Plan 1. Abnormal neurological signs raising the possibility of stroke versus the pre-existent finding secondary to underlying scoliosis MRI of the brain would be necessary and then MRI of the cervical spine if it has not been done in the past. He will also need the echocardiogram and he has already been given aspirin 325mg in addition he takes atorvastatin 20mg and will add the Plavix 75mg daily for the next 3 weeks. Consult date: 10/14/23 HPI: Amor Longo is a 67 year old male Admitted to the hospital through the emergency room with ongoing history of hypertension and complained of circumoral numbness since 12 midnight followed by the numbness and tingling in his left lower extremity and difficulty in ambulation subsequently he went to take a bath when he felt very clumsy and was unable to coordinate himself by the time he came to the emergency room the symptomatology was resolved. He has been receiving aspirin 325mg daily in addition to the citalopram 20mg daily. He is allergic to sulfa. And in the past he carries the diagnosis of anxiety, hypertension, chronic neck and low back pain, intermittent dizziness, irregular heartbeats, and scoliosis , he has undergone cataract surgery. he is never a smoker, currently takes 2 drinks a month, and initial exam in the emergency room revealed him to have no focal deficit. His vital signs were normal. CBC was normal. And the routine lab studies were also normal initial CT scan of the head documented no bleed and no major stroke chest x-ray was negative, head and neck CTA was negative. 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 Palpitations Pre-diabetes Prostate cancer screening PVCs (premature ventricular contractions) RBBB (right bundle branch block) Renal cyst Right ureteral stone Ringworm Sciatica of right side Scoliosis Skin plaque Varicosities of leg Vitamin D deficiency Vitreous floaters of right eye Surgical History Surgical History S/P cataract surgery S/P hernia surgery Family History Family History (Updated 10/14/23 @ 10:47 by Marely Burleson RN) Father Atherosclerosis Mother COPD (chronic obstructive pulmonary disease) Social History Social History Smoking status: Never smoker Alcohol intake: current Drinks per week: 1 Alcohol use details: STATES MAYBE 2 DRINKS A MONTH Substance use: never Substance use type: does not use Do You Feel Safe in your Home?: Yes Lack of Transportation: No Lack of Food: Never True Current Housing: I Have Housing Concerned About Future Housing: No Difficulty Paying Gas/Electric Bills: No Difficulty Paying for Meds: No Currently Unemployed: No Education: Associate Degree Difficulty w/ Childcare or Family Care: No Living arrangements: with family Gender identity (if verbalized by the patient): Male Spiritual care concerns: No Meds Home Medications and Allergies Home Medications Medication Instructions Recorded Confirmed Type cyanocobalamin (vitamin B-12) 1,000 mcg PO DAILY 07/04/20 10/14/23 History 1,000 mcg tablet cyclobenzaprine 10 mg tablet
--- NOTE | 2023-10-14 13:35 | PM.IMHP ---
H&P: HPI History of Present Illness Date/Time: 10/14/23 13:35 Chief Complaint: Left sided numbness Narrative: 67yo male with HTN, HLD and pre-DM here for left sided numbness. Patient awoke around 3:45 a.m. with perioral tingling and burning. He walked to the bathroom but felt lightheaded. He sat on the stool but was unable to stand. He had numbness in his left arm and leg. His was able to walk him back to bed. There was no slurred speech noted at that time. Patient declined EMS and returned to bed. Patient awoke around 630 in the morning. He did not have slurred speech but noted that his speech was different. His left arm and leg felt heavy but denied weakness. He was unsteady on his feet. His family convinced him to go to the emergency room. He fell walking to the car and skinned is left knee. No headaches, fever, chills, vision changes, vomiting, diarrhea or abdominal pain. He did have some nausea but he felt this was prior related to anxiety. He has eaten earlier today in denies any further nausea symptoms. He does complain of trouble swallowing on the left side. Does take an aspirin a day. He has high blood pressure that is well controlled with his medications. He has hyperlipidemia also well controlled with atorvastatin. No history of atrial fibrillation but does have PVCs and is on metoprolol for this. He is a lifelong nonsmoker. No diabetes. Patient presented to the emergency room for evaluation. In the emergency room, patient was hemodynamically stable. Cbc and CMP were normal except for BUN 23 a glucose 123. Troponin was negative. PT was slightly elevated at 14.8 with INR 1.1. EKG showed normal sinus rhythm with right bundle branch block morphology, left axis deviation, left anterior fascicular block and voltage criteria for LVH. Chest x-ray was clear. Head CT showed no significant abnormalities. CTA of the head and neck showed was unremarkable. Patient was given aspirin and Pepcid and admitted for further care. Neurology consulted. Since admission patient underwent brain MRI which shows acute infarct in the right paramedian kenney. Review of Systems Review of Systems: All systems reviewed & are unremarkable except as noted in HPI and below [facility] Past Medical History Medical History (Updated 10/14/23 @ 13:52 by Андрей Riojas MD) Anxiety Benign essential hypertension BMI 40.0-44.9, adult Cervicalgia Chronic low back pain Chronic right-sided thoracic back pain Dizziness Elevated glucose Encounter for preventive health examination Encounter for routine adult health examination without abnormal findings Fatigue Follow up Granuloma annulare Heart murmur History of kidney stones Hyperlipidemia Irregular heartbeat Kidney stone with hx of surgical resection 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 Drinks 1 alcoholic drink per month on average. No drug use. Full code. He nominates his to be the individual would make medical decisions for him if he is unable. Smoking status: Never smoker Alcohol intake: current Drinks per week: 1 Alcohol use details: STATES MAYBE 2 DRINKS A MONTH Substance use: never Substance use type: does not use Do You Feel Safe in your Home?: Yes Lack of Tra
[2023-10-14] MEDS: PERFLUTREN LIPID MICROSPHERES 1.5 ML VIAL DILUTED TO 10 ML TOTAL VOLUME IV PUSH (14:35)
[2023-10-14] MEDS: buPROPion HCL XL (24 HR) 150 MG TABCR PO (14:54)
[2023-10-14] MEDS: CLOPIDOGREL BISULFATE 75 MG TABLET PO (14:54)
[2023-10-14] MEDS: lisinopriL 20 MG TABLET PO (14:55)
[2023-10-14] MEDS: hydroCHLOROthiazide 25 MG TABLET PO (14:55)
[2023-10-14] MEDS: FOLIC ACID 1 MG TABLET PO (14:55)
[2023-10-14] MEDS: CYCLOBENZAPRINE HCL 10 MG TABLET PO ×2 (14:55→19:47)
[2023-10-14] MEDS: CYANOCOBALAMIN 1,000 MCG TABLET 1000 MCG PO (14:55)
--- NOTE | 2023-10-14 14:56 | IVDEFINITY ---
Prior to administration of IV Definity the patient was educated on the risks and benefits of the imaging enhancing agent including potential adverse side effects. The patient verbalized understanding. Allergies were verified. No exclusion criteria were identified and at least one of the following inclusion criteria were met: 1) physician request, 2) patient technically difficult to image (per the [place] [employer]chocardi[employer] guidelines of two or more segments not discernable within the apical view), or 3) questionable left ventricular function. ?
--- NOTE | 2023-10-14 16:36 | PCSTNOTE ---
Please refer to the Bedside Swallow Evaluation in the EMR. Please note, silent aspiration cannot be ruled out at bedside.
[2023-10-14] MEDS: allopurinoL 300 MG TABLET PO (19:46)
[2023-10-14] MEDS: ESCITALOPRAM OXALATE 10 MG TABLET 20 MG PO (19:47)
[2023-10-14] MEDS: GABAPENTIN 300 MG CAPSULE PO (20:55)
[2023-10-14 21:04] LABS: Glucose Point of Care 101 mg/dl (65-105)
[2023-10-14] MEDS: ACETAMINOPHEN 325 MG TABLET 650 MG PO (22:23)
[2023-10-14] MEDS: MELATONIN 5 MG TABLET 10 MG PO (22:26)
[2023-10-15] VITALS (7 sets, daily range): BP systolic 115–129; BP diastolic 61–72; PULSE 65–74; RESP 16–18; TEMP 36.1–36.7; O2SAT 96–98
[2023-10-15 06:03] LABS: Cholesterol 128 mg/dL (0-200); HDL Direct 30 mg/dL; Triglycerides 87 mg/dL (<150)
[2023-10-15 06:14] LABS: LDL Cholesterol Direct 76 mg/dL
[2023-10-15 06:50] LABS: Hemoglobin A1C 5.9 % (<5.7)
[2023-10-15 07:51] LABS: Glucose Point of Care 99 mg/dl (65-105)
[2023-10-15] MEDS: lisinopriL 20 MG TABLET PO (08:43)
[2023-10-15] MEDS: METOPROLOL TARTRATE 25 MG TABLET 75 MG PO (08:43)
[2023-10-15] MEDS: ATORVASTATIN 40 MG TABLET PO (08:43)
[2023-10-15] MEDS: hydroCHLOROthiazide 25 MG TABLET PO (08:44)
[2023-10-15] MEDS: CLOPIDOGREL BISULFATE 75 MG TABLET PO (08:44)
[2023-10-15] MEDS: buPROPion HCL XL (24 HR) 150 MG TABCR PO (08:44)
[2023-10-15] MEDS: FOLIC ACID 1 MG TABLET PO (08:44)
[2023-10-15] MEDS: ASPIRIN 81 MG CHEWABLE TABLET PO (08:44)
[2023-10-15] MEDS: CYANOCOBALAMIN 1,000 MCG TABLET 1000 MCG PO (08:44)
--- NOTE | 2023-10-15 15:26 | PM.DS ---
DS: Admitting Diagnosis Discharge Date October 15, 2023 Admitting Diagnosis CVA DS: Discharge Diagnosis Discharge Diagnosis (1) CVA (cerebral vascular accident): Code(s): I63.9 - Cerebral infarction, unspecified Status: Acute (2) Pre-diabetes: Code(s): R73.03 - Prediabetes Status: Acute (3) Benign essential hypertension: Code(s): I10 - Essential (primary) hypertension Status: Acute (4) Morbid obesity: Code(s): E66.01 - Morbid (severe) obesity due to excess calories Status: Acute (5) Hyperlipidemia: Qualifiers: Hyperlipidemia type: mixed hyperlipidemia Qualified Code(s): E78.2 - Mixed hyperlipidemia Code(s): E78.5 - Hyperlipidemia, unspecified Status: Acute DS: Summary Hospital Course Hospital Course: 67-year-old male with a history of hypertension hyperlipidemia prediabetes presented for left-sided numbness progressed to weakness of the left arm and left leg. Head and neck CT unremarkable. Carotid Doppler ultrasound less than 50% stenosis of left and right ICAs. Brain MRI demonstrating acute infarct in the right paramedian kenney. Echo with bubble study demonstrating intact interatrial septum. Neurology consulted at which point his aspirin 325 mg was decreased to 81 mg daily. Plavix 75 mg daily was added. His atorvastatin was increased to 40 mg daily. Speech PT and OT eval is completed and patient suggested to be discharged to acute rehab however he refused. He wanted to do outpatient therapy only which has been ordered. Hence, he is discharged in stable condition to home with his and a walker on 10/15/2023. Patient has had restless legs for a long time now which has been exacerbated by his stroke symptoms. He has been started on low-dose pramipexole at night. HbA1c 5.9% on this admission which has been stable for about 2 years now. The patient declines starting metformin would like to talk to his PCP about that. He has otherwise been educated on lifestyle modifications and disease processes and prevention for further strokes to which she understood and agreed to. The patient has been educated on the adverse effects and risk and benefits of all medications and he knows to follow up with these medications and comorbidities within a week with his PCP. Time Spent with Patient Time attestation: Total time spent providing and/or coordinating discharge services: Exam Const: General: comfortable and no acute distress Other: A&O x4. present at bedside. Obese male. Eyes: Pupils: Equal, round and reactive pupils present EOM: EOMs intact bilaterally Neck: Neck: supple Resp: Effort & Inspection: normal respiratory effort Auscultation: clear to auscultation bilaterally Cardio: Rate: regular rate Rhythm: regular rhythm Heart sounds: Murmur heart sound present GI: GI Palp: Yes Soft to palpation and No Tenderness to palpation present (GI) Neuro: Other: A&O x4. Cranial nerves 2-12 grossly intact. Speech clear. Left hip flexion 3/5. Left knee and ankle flexion 1/5. Left hand threading machine setter 1/5 left elbow flexion 1/5 left shoulder shrug 2/5 Extrem: General: no edema DS: Data Data Completed and Pending Labs on day of discharge: Labs from last 24 hours 10/15/23 10/15/23 10/15/23 07:20 05:40 05:39 POC Capillary Glucose 99 Hemoglobin A1c 5.9 H Triglycerides 87 Cholesterol 128 LDL Cholesterol Direct 76 HDL Direct 30 10/14/23 19:45 POC Capillary Glucose 101 Hemoglobin A1c Triglycerides Cholesterol LDL Cholesterol Direct HDL Direct Discharge Plan Discharge Attending physician on discharge: Sara Sidhu Consulting providers: Jose Lynn Discharging Clinician: Sara Sidhu Patient Disposition: Home, Self-Care Activity: december shower Diet: heart healthy Discharge Instructions: Patient to call and arrange out-patient PT, OT, ST appointment for therapy to s
== END 2023-10-15 16:00 | disposition home or self-care (01) ==
LOC: ANHED 08:27 → ANH3MEDSUR 09:19
PROVIDERS: Emergency Medicine; Admitting Provider Internal Medicine; Emergency Provider Family Medicine; PCP Internal Medicine; Visit Provider General Practice
DX: I63.9 Cerebral infarction, unspecified (principal); R73.03 Prediabetes; R29.700 NIHSS score 0; I10 Essential (primary) hypertension; F41.9 Anxiety disorder, unspecified; I35.8 Other nonrheumatic aortic valve disorders; I34.81 Nonrheumatic mitral (valve) annulus calcification; I45.2 Bifascicular block; M41.9 Scoliosis, unspecified; E78.2 Mixed hyperlipidemia; I49.3 Ventricular premature depolarization; E55.9 Vitamin D deficiency, unspecified; F10.90 Alcohol use, unspecified, uncomplicated; Z79.891 Long term (current) use of opiate analgesic; Z79.82 Long term (current) use of aspirin; Z79.899 Other long term (current) drug therapy; E66.01 Morbid (severe) obesity due to excess calories; Z68.41 Body mass index [BMI] 40.0-44.9, adult
CPT/HCPCS: 36415; 70450; 70496; 70498; 70553; 71045; 80053; 80061; 82948; 83036; 84484; 85025; 85610; 85730; 92526; 92610; 93005; 93880; 96374; 96375; 96376; 97161; 97165; 97530; 97535; 99285; A9270; A9577; C8929; G0378; Q9957; Q9967

== ENCOUNTER 2023-12-04 13:30 | Outpatient (RCR) | payer BC, SELFPAY ==
--- NOTE | 2023-10-22 15:46 | OTOPEVAL1 ---
Assessment and note entered by Bob Arrington, ADRIAN/Malinda, CHT Evaluation Information Assessment Status Evaluation Diagnosis CVA Onset 10/14/23 Subjective Information Patient was diagnosed with a CVA last week, left side affected. He is s/p acute care x2 days and discharged home. He lives with his , Adelaida. His or son helps with all transfers. helps with bathing and dressing. He is using a w/w . Prior to CVA he was independent with ADLs, driving, and restoring motorcycles. Reported Pain Level Pain Score 0: Self Report Assessment OT Clinical Summary Patient referred to OT with dx of CVA with left side affected. He presents with gross weakness and limited functional coordination. Skilled OT indicated for HEP instruction and progression, functional therapeutic exercise, and education on adaptive ADL techniques to facilitate return functional independence with ADLs. Plan of Care Interventions Therapeutic Exercise,Therapeutic Activities, Electrical Stimulation,Self-Care/Home Management OT Services Indicated Yes Treatment Frequency and 2x/week for 10 visits Duration These treatments will address the objective and functional deficits as defined above. The patient will be advanced safely and appropriately in order for the patient to progress towards his/her prior level of function. Additional exercises will be introduced and as well as a comprehensive home exercise program upon discharge, if needed, ?to ensure carryover of functional gains achieved in the clinic. This treatment plan has been reviewed and agreement upon by the patient.
--- NOTE | 2023-10-22 15:46 | OPREHPOC ---
Outpatient Therapy Plan of Care This is a Multidisciplinary Plan of Care that may contain components documented by all disciplines (PT, OT, and ST.) OT Problem 1 OT Problem #1 Knowledge Deficit OT Goal 1 Goal 1. Patient to be independent with instructed materials. Target Visit 10 OT Problem 2 OT Problem #2 Impaired Coordination OT Goal 1 Goal 1. Patient to be able to complete the 9-hole peg test with the left hand. Target Visit 10 OT Problem 3 OT Problem #3 Impaired Strength OT Goal 1 Goal 1. Patient to improve functional strength of the left shoulder as demonstrated by being able to flex and abduct the shoulder to 90 degrees or more . 2. Patient to improve functional strength of the left elbow as demonstrated by being able to reach his left hand to his face. 3. Patient to improve functional strength of the left wrist as demonstrated by being able to extend the wrist against gravity with a 1 lb. free weight x10 reps. 4. 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 to 30 lbs. Target Visit 10 OT Problem 4 OT Problem #4 Impaired Functional ADLs OT Goal 1 Goal 1. Patient to report being independent with bathing and dressing. Target Visit 10
--- NOTE | 2023-10-29 13:35 | OPREHPOC ---
Outpatient Therapy Plan of Care This is a Multidisciplinary Plan of Care that may contain components documented by all disciplines (PT, OT, and ST.) PT Problem 1 PT Problem #1 Knowledge Deficit PT Goal 1 Goal * indep with HEP PT Problem 2 PT Problem #2 Impaired Strength PT Goal 1 Goal increase strength of L LE to improve mobility and balance skills: 1* sit to/from stand transfer from 18 seat, with 1 UE use 2* with walking, able to clear L toes and achieve heel strike 3* in sitting perform 20 L ankle circles in full ROM 4* single leg standing L with 1 UE support x 20 seconds PT Problem 3 PT Problem #3 Impaired Functional Mobility PT Goal 1 Goal increase balance and mobility skills, to return to indep functionin* Tinetti balance score of 24/28 2* 5 reps sit/stand time of 20 seconds 3* 2 minute walking test distance of 300' 4* pt ambulate with cane 5* not assisting pt in/out car seat 6* up/down 8 steps with 1 UE support. OT Problem 1 OT Problem #1 Knowledge Deficit OT Goal 1 Goal 1. Patient to be independent with instructed materials. Target Visit 10 OT Problem 2 OT Problem #2 Impaired Coordination OT Goal 1 Goal 1. Patient to be able to complete the 9-hole peg test with the left hand. Target Visit 10 OT Problem 3 OT Problem #3 Impaired Strength OT Goal 1 Goal 1. Patient to improve functional strength of the left shoulder as demonstrated by being able to flex and abduct the shoulder to 90 degrees or more . 2. Patient to improve functional strength of the left elbow as demonstrated by being able to reach his left hand to his face. 3. Patient to improve functional strength of the left wrist as demonstrated by being able to extend the wrist against gravity with a 1 lb. free weight x10 reps.
--- NOTE | 2023-10-29 13:35 | PTOPEVAL1 ---
Assessment and note entered by Stacey Penny, PT Evaluation Information Assessment Status Evaluation Diagnosis CVA, L side affected Onset Oct 14, 2023 Subjective Information was hospitalized, then home with family; using wheeled walker, have lift chair to assist with sit > stand; family assist with getting L leg into bed; have shower chair and stands by for safety only; one entry step into home, can use the walker on it have not been doing any leg exercises at home-- only told to walk as much as able; Prior to CVA: active, indep and no assistive device; retired, hobby of [employer]; Reported Pain Level Pain Score Self Report Additional Pain Score Comments about 8:00 at night, start getting spasms and painful in leg- moves into flexion tone, gave baclofen- started about 1 week ago; increase to 10/10 discussed use of heat, stretching, change positions; Assessment PT Clinical Summary Amor has the diagnosis of CVA with L weakness. He has a quality assurance monitor intact for cardiac testing. Rosita present during eval. He also has OT services. Prior to CVA he was indep, active and did not have any limitations in activity level. Currently, using a wheeled walker for mobility and family doing all the home tasks. assist him with getting out of car due to low seat. With the evaluation: sit/stand requires use of both UE's, 5 reps sit/stand time of 34 seconds; Tinetti balance/ gait score of 16/28= high risk for falls, 2 minute walking test distance of 180' with wheeled walker and on stairs requires use of both UE support.; decreased L LE strength of hip, knee and ankle. Skilled PT services are indicated to increase LE strength, gait and balance skills, to improve mobility and return to indep functioning. With education for home exercises and gait progression to lesser assistive device. Plan of Care Interventions Gait Training,Neuro Re-education,Patient/Caregiver EducationTherapeutic Activities,Therapeutic Exer
--- NOTE | 2023-12-04 13:18 | OTOPDC ---
Assessment and note entered by Bob Arrington, ADRIAN/Malinda, CHT OT Discharge Summary 12/04/23 Diagnosis CVA Onset 10/14/23 Subjective Information Patient reports excellent progress in the last month. He has progressed to being independent with bathing, dressing, and all transfers. He reports he is pleased with the amount of movement that has returned in his arm, reporting no functional limitations. Reports some residual shoulder tightness. Overall the arm feels a little numb . Patient has progressed to being able to move the (L) UE through normal ROM. Some residual tightness noted in the shoulder with external rotation. Shoulder, elbow, and wrist strength improved to 5/5 (L) yoke setter strength improved from 17 to 64 lbs. Assessment OT Clinical Summary Patient referred to OT with dx of CVA with left side affected. He presents today, progressing back to normal limits with gross strength of the left UE. He has tripled his yoke setter strength and was able to complete the 9-hole peg test in 39 seconds. Reviewed HEP. 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 D/C OT with patient independent with all materials. Plan of Care OT Services Indicated No
--- NOTE | 2023-12-04 14:25 | PTOPDC ---
Assessment and note entered by Stacey Penny, PT Discharge Information Assessment Status Discharge Diagnosis CVA, L side affected Onset Oct 14, 2023 Subjective Information things are going well; no falls; use cane only for security when walking uneven surfaces or outside; have been doing the exercises at home; is not helping him with anything; drove one time and did OK; ready for discharge from therapy. Reported Pain Level Pain Score 0: Self Report Pain Score 0: Self Report Additional Pain Score Comments some overall general pain/ old age pains, but not stop him from doing anything Assessment PT Clinical Summary Amor received 9 PT sessions. Compared to the initial eval: improved in all areas: is walking without an assistive device or using cane in community or uneven surfaces; indep on 12 steps with one hand railing and alternating step pattern; Tinetti improved from 16 to 28/28; increase L LE and ankle control and strength; 5 reps sit/stand time from 34 to 21 seconds; 2 minute walking test distance from 180' with wheeled walker to 325' without assistive device. Education completed for HEP and he is safe with mobility. The goals were achieved. Discharge PT services. He is to continue with his home exercises. Plan of Care PT Services Indicated No
== END 2023-12-04 15:05 | disposition home or self-care (01) ==
LOC: ANHPT 13:30
PROVIDERS: PCP Internal Medicine; Visit Provider General Practice
DX: I63.9 Cerebral infarction, unspecified (principal)
CPT/HCPCS: 97110; 97112; 97116; 97161; 97166; 97530

== ENCOUNTER 2025-03-09 08:28 | Outpatient (CLI) | payer OTHER, SELFPAY ==
--- OUTSIDE RECORDS SUMMARY | 2025-03-07 09:19 | XMS_ITS | Clinical Summary ---
Author Organization [facility] Address [address] [place] [address] Care Team Providers Care Nuisance Wildlife Trapper Name Role Phone Stew Abdul MD Primary Care Provider [phone] Source Comments [facility],non-owned Affiliates and Associated Physician Practices is amultiple site organization consisting of ambulatory clinics and hospital sitesin [place], [place], [place] and [place]. This disclosure is being madepursuant to the Care Everywhere program and may not contain all information available regarding this patient. Last updated 18.[facility] [employer] Allergies Active Allergy Reactions Criticality Noted Date Comments Sulfa Drugs 06/11/2017 Immunizations Immunization Administration Dates Next Due INFLUENZA VACCINE, QUADR. (F LUZONE; FLULAVAL; FLUARIX; AFLURIA QUADRIVALENT; 6MO+), 0.5 ML (IIV4) 06/11/2017 Social History Tobacco Use Types Packs/Day Years Used Date Smoking Tobacco: Never Assessed Sex and Gender Information Value Date Recorded Sex Assigned at Not on file Legal Sex Male 12:22 PM CDT Gender Identity Not on file Sexual Orientation Not on file Plan of Treatment Health Maintenance Due Date Last Done Comments COLOGUARD (AGES 45-75) - COL ON CA SCREENING 1957 COLON MONITORING 1957 COLONOSCOPY - COLON CA SCREENING 1957 CT COLONOGRAPHY - COLON CA SCREENING 1957 Colorectal Cancer Screening 1957 FIT - COLON CA SCREENING 1957 FLEX SIG - COLON CA SCREENING 1957 LIPID TESTING 1957 HEPATITIS C SCREENING 12/19/1975 DTAP/TDAP/TD VACCINES (1 - Tdap) 1976 PNEUMOCOCCAL VACCINE 50+ (1 of 1 - PCV) 12/24/2007 ZOSTER VACCINE (1 of 2) 12/24/2007 COVID-19 VACCINE (1 - 2023-2 5 season) 2024 DEPRESSION SCREENING 08/25/2024 INFLUENZA VACCINE (#1) 2025 06/11/2017 Respiratory Syncytial Virus (RSV) Vaccine Pt: or over 60 yrs (1 - 1-dose 75+ series) 2032 HEPATITIS B VACCINE Aged Out No longe r eligible based on patient's age to complete this topic HIB VACCINE Aged Out No longer eligi ble based on patient's age to complete this topic HPV VACCINE Aged Out No longer eligi ble based on patient's age to complete this topic MENINGOCOCCAL (Group B) VACC INE SHARED DECISION-MAKING Aged Out No longer eligibl e based on patient's age to complete this topic MENINGOCOCCAL GROUPS A/C/Y/W VACCINE Aged Out No longer eligible b ased on patient's age to complete this topic Insurance AETNA AETNA Care Teams Nuisance Wildlife Trapper Relationship Specialty [place] [address] [place] [phone] PCP - General Internal Medicine 06/11/17
--- OUTSIDE RECORDS SUMMARY | 2025-03-09 08:34 | XMS_ITS | Clinical Summary ---
Author Organization [facility] Address [address] [place] [address] Care Team Providers Care Import Coordinator Name Role Phone Stew Abdul MD Primary Care Provider [phone] Source Comments [facility],non-owned Affiliates and Associated Physician Practices is amultiple site organization consisting of ambulatory clinics and hospital sitesin [place], [place], [place] and [place]. This disclosure is being madepursuant to the Care Everywhere program and may not contain all information available regarding this patient. Last updated 18.[facility] [employer] Allergies Active Allergy Reactions Criticality Noted Date [...] this topic Insurance AETNA AETNA Care Teams Import Coordinator Relationship Specialty [place] [address] [place] [phone] PCP - General Internal Medicine 06/11/17
--- NOTE | 2025-04-04 10:10 | P.SLEEP_ITS ---
Sleep Study Date of Study: 03/09/25 Ordering Provider: Stew Abdul MD Interpreting Physician: Lida Majano MD Sleep Study Type: Polysomnogram Height: 1.83 m Weight: 133.81 kg Body Mass Index: 40.0 Neck Circumference (inches): 17.25 [place]: 17 Reason for Sleep Study Hypersomnolence Sleep History Amor Longo is a 69-year-old man with hypersomnolence. He never awakens from sleep feeling short of breath. He never wakes at night with heartburn, belching or coughing.??He occasionally snores, rarely snores loudly enough that others complain. He occasionally has trouble sleeping when he has a cold. He never wak es up gasping for breath during the night. He never has breathing problems at night. He never sweats excessively at night. He never notices his heart pounding or beating irregularly during the night. He constantly falls asleep during the day. He constantly falls asleep involuntarily, never falls asleep while driving. He never experiences loss of muscle tone with strong emotion. He occasionally has daytime difficulty while working on his hobbies due to excessive sleepiness. He never feels paralyzed on waking or falling asleep. He occasionally experiences vivid dreams upon waking or falling asleep. He never feels afraid of going to sleep. He rarely has nightmares. He frequently recalls his dreams. He never has thoughts racing through his mind, although he did prior to his stroke. He constantly feels sad or depressed. He occasionally feels anxiety. He frequently notices parts of his body jerk. He frequently kicks during the night. He has spasticity since his stroke. He occasionally feels crawling or aching feelings in his legs which he says is related to his spasticity. He occasionally feels leg pain at night. He never has morning jaw pain, never grinds his teeth at night. He frequently feels bothered by pain during the day, is never awakened by pain during the night. He rarely wakes up feeling stiff in the morning, and he rarely wakes feeling sore or achy. He rarely awakens with pain in his neck, spine, or joints. he has a significant problem with fatigue. Normal bedtime is 11:30 p.m., usually falling asleep quickly although about once a week, he hits a wall and cannot fall asleep for an hour. he wakes once at night for a minute of less, easily returns to sleep. He typically gets between 6-7 hours of sleep per night. His wake up time is 6:0 a.m.. He takes no naps in the day, however if he takes a short nap on occasion, he may feel refreshed. He reports no change in weight in the last year. 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 (CVA) Hemiparesis affecting left side as late effect of stroke Fatigue Heart murmur Skin plaque Ringworm Renal cyst Irregular heartbeat Elevated glucose Dizziness Chronic right-sided thoracic back pain Follow up RBBB (right bundle branch block) Prostate cancer screening Encounter for preventive health examination Vitamin D deficiency Cervicalgia Right ureteral stone Kidney stone with hx of surgical resection Vitreous floaters of right eye BMI 40.0-44.9, adult Varicosities of leg Anxiety PVCs (premature ventricular contractions) History of kidney stones Scoliosis Sciatica of right side Granuloma annulare Chronic low back pain Pre-diabetes Palpitations Encounter for routine adult health examination without abnormal findings On residential drug therapy Hyperlipidemia Benign essential hypertension Surgical History Surgical History S/P cataract surgery S/P hernia surgery Family History Family History Father Atherosclerosis Mother COPD (chronic obstructive pulmonary disease) Social History Social History Social History: Lifelong nonsmoker. Drinks 1 alcoholic drink per month on average. No drug use. Full code. He nominates his to be the individual would make medical decisions for him if he is unable. Smoking status: Never smoker Alcohol intake: current Drinks per week: 1 Alcohol use details: STATES MAYBE 2 DRINKS A MONTH Substance use: never Substance use type: does not use Do You Feel Safe in your Home?: Yes Lack of Transportation: No Lack of Food: Never True Current Housing: I Have Housing Concerned About Future Housing: No Difficulty Paying Gas/Electric Bills: No Difficulty Paying for Meds: No Currently Unemployed: No Education: Associate Degree Difficulty w/ Childcare or Family Care: No Living arrangements: with family Gender identity (if verbalized by the patient): Male Spiritual care concerns: No Medications Home Medications ?Medication ?Instructions ?Recorded ?Confirmed ?Type cyanocobalamin (vitamin B-12) 1,000 mcg PO DAILY 07/0403/29/25 History 1,000 mcg tablet aspirin 81 mg chewable tablet 81 mg PO DAILY@0800 #30 tabs 10/15/23 03/29/25 Rx (Children's Aspirin) folic acid 1 mg tablet See Rx Instructions .Route 0 01/20/24 03/29/25 Rx .COMPLEX #90 tabs calcium BYMOUTH 06/23/24 03/29/25 Hi story cholecalciferol (vitamin D3) 50 50 mcg PO DAILY 03/29/25 History mcg (2,000 unit) capsule magnesium 250 mg tablet 250 mg PO DAILY 06/23/2401/16 History tramadol 50 mg tablet 50 mg PO Q6H PRN pain #50 ta bs 09/30/24 03/29/25 Rx allopurinol 300 mg tablet See Rx Instructions .Route 0 11/10/24 03/29/25 Rx .COMPLEX #90 tabs atorvastatin 40 mg tablet See Rx Instructions .Route 0 11/15/24 03/29/25 Rx .COMPLEX #90 tabs clopidogrel 75 mg tablet See Rx Instructions .Route 0 11/29/24 03/29/25 Rx .COMPLEX #30 tabs bupropion HCl 150 mg 24 hr tablet, 150 mg PO DAILY #90 tabs 01/24/25 03/29/25 Rx extended release hydrochlorothiazide 25 mg tablet 25 mg PO DAILY #90 ta bs 01/24/25 03/29/25 Rx lisinopril 20 mg tablet 20 mg PO BID #180 tabs 02/0803/29/25 Rx zolpidem 10 mg tablet 10 mg PO QHS sleep study #2 tabs 02/08/25 03/29/25 Rx escitalopram oxalate 20 mg tablet See Rx Instructions .Route 03/15/25 03/29/25 Rx .COMPLEX #90 tabs metoprolol succinate 100 mg 150 mg (1.5 x 100 mg) PO . @ hs 03/16/25 03/29/25 Rx tablet,extended release 24 hr #135 tabs baclofen 20 mg tablet 20 mg PO TID 90 days #270 ta bs 04/04/25 Rx Sleep Procedure A full night polysomnogram using the Onehub multi-channel system recorded the standard physiologic parameters including EEG, EOG, submentalis EMG, anterior tibialis EMG, EKG, body position, nasal and oral airflow using nasal pressure sensor and thermistor. Respiratory parameters of chest and abdominal movements were recorded with Respiratory Inductance Plethysmography belts. Oxygen saturation was recorded by pulse oximetry. Video monitoring was also performed. Sleep stages, periodic limb movements, and EEG arousals were scored in 30 second epochs according to the criteria of the AASM Scoring Manual. The Apnea-Hypopnea Index was calculated using [facility] guidelines for definition of hypopnea while scoring respiratory events. He self administered zolpidem at the start of the study. He did not meet criteria to have a split night study, so this was conducted as a basic nocturnal polysomnogram. The patient has scoliosis and sleeps with the head of the bed raised at home. He slept on 2 pillows with the head of the bed elevated 20?. Due to his back issues, he did not sleep in the lateral or prone position. He slept in his normal position on his back. Sleep Architecture The total recording time was 435.3 minutes. The total sleep time was 343.5 minutes. Sleep latency was 9.4 minutes. REM latency was 81.5 minutes. Sleep efficiency was 78.9%. The patient had 34 awakenings for an awakening index of 5.9. Wake after sleep onset time was 82.0 minutes. The patient spent 45.5 minutes, 13.2% of total sleep time in Stage N1. The patient spent 228.0 minutes, 66.4% in Stage N2. The patient spent 16.5 minutes, 4.8% in Stage N3. The patient spent 53.5 minutes, 15.6% in Stage REM sleep. Respiratory Analysis The patient had 26 hypopneas, 4 obstructive apneas, no mixed apneas, and no central apneas for an overall Apnea Hypopnea Index of 5.2. The REM Apnea Hypopnea Index was 7.9. The NREM Apnea Hypopnea Index was 5.4. The patient had a Central Apnea Hypopnea Index of 0. There were no Respiratory Effort Related Arousals. The Respiratory Disturbance Index is 8.2 events per hour. There was no evidence of Gilles-Palomares Respirations. Arousals There were 72 total arousals for an arousal index of 12.6. There were 35 spontaneous arousals for an index of 6.1. There were 12 arousals due to respira tory events for an index of 2.1. There were 23 arousals due to periodic limb movements for an index of 4.0. There were 2 arousals due to isolated limb movements for an index of 0.3. Periodic Limb Movements The patient had 8 isolated limb movements with an index of 1.4. The patient had 279 periodic limb movements with an index of 48.7. Patient had a total of 287 limb movements with a total limb movement index of 50.1. Oximetry Data The patient had an average oxygen saturation of 93.2% in sleep with a minimum oxygen saturation of 87% and a maximum oxygen saturation of 97%. The patient had 28 oxygen desaturations that were 4% or greater resulting in an Oxygen Desaturation Index of 4.9. The patient spent [min] minutes, [%] of total sleep time with an oxygen saturation below 88%. Snoring Profile Snoring was mild to moderate and intermittent. Cardiac Profile The EKG showed normal sinus rhythm, average pulse rate of 63.8 bpm with a minimu m pulse of rate of 51 bpm and a maximum pulse rate of 78 bpm. No arrhythmias noted. EEG Profile Unremarkable, no evidence of seizures. Assessment and Plan Assessment and Plan (1) Obstructive sleep apnea: Code(s): G47.33 - Obstructive sleep apnea (adult) (pediatric) Status: Acute Assessment and Plan: This basic nocturnal polysomnogram on 03/09/2025 shows mild obstructive sleep apnea, the apnea-hypopnea in dex is 5.2 with desaturation 87%. He did not have central apneas. He had a large number of limb movements, limb movement index was 48.7 however these did not cause significant arousals. His limb movement arousal index was 4.3. He has hypertension, and with this medical comorbidity, he is a candidate for treatment with PAP therapy. I recommend that this patient be prescribed Resmed AirSense 11 AutoPAP 5-15 cm H2O, CPAP mask/filters/tubing and humidifier chamber. This should be used with all episodes of sleep. Compliance should be reviewed within 31-90 days of starting therapy for usage greater than 4 hours per night greater than 70% of the nights. The patient should be asked about symptoms such as excessive daytime sleepiness, quality of sleep, decreased nocturia, increased mental functioning such as memory, mood, and concentration. If he does not respond to autoPAP, he needs to have a full night CPAP titration with a sleep aid available, if needed, to get to sleep and stay asleep. Consider Lunesta 1-2 mg or Ambien 5 mg to 10 mg. BMI is 40. Weight management is advised. Clinical data suggests that weight loss of 10% can reduce the severity of respiratory events and snoring and improve AHI by as much as 25%. It is possible that his leg movements disturb sleep, however he did not have movement related arousals. Clinical correlation is recommended. He may need attention addressed to his spasticity to improve sleep quality. Data The data obtained during this sleep study is adequate for interpretation. Certification This sleep study has been reviewed by a board certified sleep medicine physician.
[2025-04-22 10:37] VITALS: BMI 40.0
== END 2025-03-10 05:34 | disposition home or self-care (01) ==
PROVIDERS: PCP Internal Medicine; Visit Provider Internal Medicine
DX: G47.10 Hypersomnia, unspecified (principal)
CPT/HCPCS: 95810

== ENCOUNTER 2025-07-15 01:29 | Day surgery (SDC) | payer OTHER, SELFPAY ==
[2025-07-08 10:14] VITALS: BMI 38.7
--- NOTE | 2025-07-08 10:42 | PC.NURSE ---
Spoke with PATIENT regarding medication PLAVIX. PATIENT verbalizes understanding that the last dose is to be taken on 07/09/2025 and the Endoscopist will instruct them when to restart after the procedure.
--- OUTSIDE RECORDS SUMMARY | 2025-07-15 01:32 | XMS_ITS | Clinical Summary ---
Author Organization [facility] Address [address] [place] [address] Care Team Providers Care Sports Trainer Name Role Phone Stew Abdul MD Primary Care Provider [phone] Source Comments [facility],non-owned Affiliates and Associated Physician Practices is amultiple site organization consisting of ambulatory clinics and hospital sitesin [place], [place], [place] and [place]. This disclosure is being madepursuant to the Care Everywhere program and may not contain all information available regarding this patient. Last updated 18.[facility] [employer] Allergies Active Allergy Reactions Criticality Noted Date [...] 12/24/2007 ZOSTER VACCINE (1 of 2) 12/24/2007 DEPRESSION SCREENING 08/25/2024 COVID-19 VACCINE (1 - 2024-2 6 season) 2025 INFLUENZA VACCINE (#1) 2025 06/11/2017 Respiratory Syncytial [...] this topic Insurance AETNA AETNA Care Teams Sports Trainer Relationship Specialty [place] [address] [place] [id number] PCP - General Internal Medicine 06/11/17
[2025-07-15 12:29] VITALS: BP 139/79; PULSE 64; RESP 19; TEMP 36.7; O2SAT 97; BMI 38.0
[2025-07-15] MEDS: LACTATED RINGERS 1,000 ML 150 ML IV CONT (12:40)
--- NOTE | 2025-07-15 13:33 | PM.IMHP ---
H&P: HPI History of Present Illness Date/Time: 07/15/25 13:33 Chief Complaint: Screening colonoscopy Narrative: This is the patient's 2nd screening colonoscopy. There are no GI symptoms and there is no family history of colorectal cancer. Review of Systems Review of Systems: All systems reviewed & are unremarkable except as noted in HPI and below PMFSH Past Medical History Medical History Anxiety Back pain Benign essential hypertension BMI 40.0-44.9, adult Cervicalgia Chronic low back pain Chronic right-sided thoracic back pain Constipation Dermatographism Dizziness Elevated glucose Encounter for Medicare annual wellness exam Encounter for preventive health examination Encounter for routine adult health examination with abnormal findings Encounter for routine adult health examination without abnormal findings Fatigue Follow up Foot drop Granuloma annulare Heart murmur Hemiparesis affecting left side as late effect of stroke History of kidney stones Hives Hyperlipidemia Hypersomnolence Irregular heartbeat Kidney stone with hx of surgical resection On longterm drug therapy Palpitations Pre-diabetes Prostate cancer screening PVCs (premature ventricular contractions) RBBB (right bundle branch block) Renal cyst Right ureteral stone Ringworm Sciatica of right side Scoliosis Skin plaque Spasticity as late effect of cerebrovascular accident (CVA) Varicosities of leg Vitamin D deficiency Vitreous floaters of right eye Surgical History Surgical History S/P cataract surgery S/P hernia surgery Family History Family History Father Atherosclerosis Mother COPD (chronic obstructive pulmonary disease) Social History Social History (Reviewed 06/29/25 @ 11:33 by Raiza White [facility]) Social History: Lifelong nonsmoker. Drinks 1 alcoholic drink per month on average. No drug use. Full code. He nominates his to be the individual would make medical decisions for him if he is unable. Smoking status: Never smoker Alcohol intake: current Drinks per week: 1 Alcohol use details: STATES MAYBE 2 DRINKS A MONTH Substance use: never Substance use type: does not use Do You Feel Safe in your Home?: Yes Lack of Transportation: No Lack of Food: Never True Current Housing: I Have Housing Concerned About Future Housing: No Difficulty Paying Gas/Electric Bills: No Difficulty Paying for Meds: No Currently Unemployed: No Education: Associate Degree Difficulty w/ Childcare or Family Care: No Living arrangements: with family Gender identity (if verbalized by the patient): Male Spiritual care concerns: No Meds Home Medications and Allergies Home Medications ?Medication ?Instructions ?Recorded ?Confirmed ?Type cyanocobalamin (vitamin B-12) 1,000 mcg PO DAILY 07/04/20 07/08/25 History 1,000 mcg tablet aspirin 81 mg chewable tablet 81 mg PO DAILY@0800 #30 tabs 10/15/23 07/15/25 Rx (Children's Aspirin) folic acid 1 mg tablet See Rx Instructions .Route 01/20/24 07/08/25 Rx .COMPLEX #90 tabs cholecalciferol (vitamin D3) 50 50 mcg PO DAILY 06/23/24 07/08/25 History mcg (2,000 unit) capsule magnesium 250 mg tablet 250 mg PO DAILY 06/23/24 07/08/25 History tramadol 50 mg tablet 50 mg PO Q6H PRN pain #50 tabs 09/30/24 07/08/25 Rx atorvastatin 40 mg tablet See Rx Instructions .Route 11/15/24 07/15/25 Rx .COMPLEX #90 tabs bupropion HCl 150 mg 24 hr tablet, 150 mg PO DAILY #90 tabs 01/24/25 07/15/25 Rx extended release hydrochlorothiazide 25 mg tablet 25 mg PO DAILY #90 tabs 01/24/25 07/15/25 Rx escitalopram oxalate 20 mg tablet See Rx Instructions .Route 03/15/25 07/15/25 Rx .COMPLEX #90 tabs metoprolol succinate 100 mg 150 mg (1.5 x 100 mg) PO .@ hs 03/16/25 07/15/25 Rx tablet,extended release 24 hr #135 tabs allopurinol 300 mg tablet See Rx Instructions .Route 05/10/25 07/15/25 Rx .COMPLEX #90 tabs APAP on hold #1 ea 06/02/25 06/29/25 Rx famotidine 20 mg tablet (Pepcid) 20 mg PO DAILY 06/14/25 07/08/25 History valsartan 320 mg tablet 320 mg PO DAILY #90 tabs 06/14/25 07/15/25 Rx clopidogrel 75 mg tablet See Rx Instructions .Route 06/27/25 07/15/25 Rx .COMPLEX #90 tabs baclofen 20 mg tablet 20 mg PO TID 90 days #270 tabs 07/05/25 07/15/25 Rx calcium no.26 167 mg-magnesium 1 cap PO DAILY 07/08/25 07/08/25 History no.15 83 mg-zinc 5 mg capsule (Fbyexqc-Lhytmuuyy-Manj Complex) Allergies Allergy/AdvReac Type Severity Reaction Status Date / Time Sulfa (Sulfonamide Allergy Unknown Rash Verified 07/15/25 12:21 Antibiotics) Vital Signs Vital Signs - 24 hr 07/15/25 12:29 Temperature 98.1 F Pulse Rate 64 Respiratory Rate 19 Blood Pressure 139/79 Pulse Oximetry 97 Oxygen Delivery Room Air Exam Const: General: cooperative and healthy appearing Resp: Effort & Inspection: normal respiratory effort and able to speak in complete sentences Auscultation: clear to auscultation bilaterally Cardio: Rate: regular rate Rhythm: regular rhythm GI: Inspection: normal to inspection GI Palp: No No hepatosplenomegaly present Auscultation: normal bowel sounds Rectal Exam: deferred Skin: General skin exam: normal color Psych: Appearance: grossly normal Mental Status: mental status grossly normal Assessment and Plan Assessment and plan (1) Colon cancer screening: Code(s): Z12.11 - Encounter for screening for malignant neoplasm of colon Status: Acute Assessment and Plan: The patient is deemed a good candidate for the procedure. Consent signed. Will proceed.
--- NOTE | 2025-07-15 13:35 | WPDANESEPPF ---
Anes - Initial Pre Proc Eval Procedure: Operation Date: 07/15/25 13:30 Proposed Procedures p Diagnostic Colonoscopy - James Robbins MD Date/Time: 07/15/25 13:35 Surgeon: James Robbins MD Pre Op Diagnosis: Other specified symptoms and signs involving the d Patient Data Age: 69 Gender: M Height: 1.83 m Weight: 127 kg Last Vital Signs Temp 36.7 C 07/15/25 12:29 Pulse 64 07/15/25 12:29 Resp 19 07/15/25 12:29 BP 139/79 07/15/25 12:29 Pulse Ox 97 07/15/25 12:29 O2 Del Method Room Air 07/15/25 12:29 Allergies Allergy/AdvReac Type Severity Reaction Status Date / Time Sulfa (Sulfonamide Allergy Unknown Rash Verified 07/15/25 12:21 Antibiotics) Home Medications ?Medication ?Instructions ?Recorded ?Confirmed ?Type cyanocobalamin (vitamin B-12) 1,000 mcg PO DAILY 07/04/20 07/08/25 History 1,000 mcg tablet aspirin 81 mg chewable tablet 81 mg PO DAILY@0800 #30 tabs 10/15/23 07/15/25 Rx (Children's Aspirin) folic acid 1 mg tablet See Rx Instructions .Route 01/20/24 07/08/25 Rx .COMPLEX #90 tabs cholecalciferol (vitamin D3) 50 50 mcg PO DAILY 06/23/24 07/08/25 History mcg (2,000 unit) capsule magnesium 250 mg tablet 250 mg PO DAILY 06/23/24 07/08/25 History tramadol 50 mg tablet 50 mg PO Q6H PRN pain #50 tabs 09/30/24 07/08/25 Rx atorvastatin 40 mg tablet See Rx Instructions .Route 11/15/24 07/15/25 Rx .COMPLEX #90 tabs bupropion HCl 150 mg 24 hr tablet, 150 mg PO DAILY #90 tabs 01/24/25 07/15/25 Rx extended release hydrochlorothiazide 25 mg tablet 25 mg PO DAILY #90 tabs 01/24/25 07/15/25 Rx escitalopram oxalate 20 mg tablet See Rx Instructions .Route 03/15/25 07/15/25 Rx .COMPLEX #90 tabs metoprolol succinate 100 mg 150 mg (1.5 x 100 mg) PO .@ 03/16/25 07/15/25 Rx tablet,extended release 24 hr #135 tabs allopurinol 300 mg tablet See Rx Instructions .Route 05/10/25 07/15/25 Rx .COMPLEX #90 tabs APAP on hold #1 ea 06/02/25 06/29/25 Rx famotidine 20 mg tablet (Pepcid) 20 mg PO DAILY 06/14/25 07/08/25 History valsartan 320 mg tablet 320 mg PO DAILY #90 tabs 06/14/25 07/15/25 Rx clopidogrel 75 mg tablet See Rx Instructions .Route 06/27/25 07/15/25 Rx .COMPLEX #90 tabs baclofen 20 mg tablet 20 mg PO TID 90 days #270 tabs 07/05/25 07/15/25 Rx calcium no.26 167 mg-magnesium 1 cap PO DAILY 07/08/25 07/08/25 History no.15 83 mg-zinc 5 mg capsule (Rybxgza-Xefljmotj-Higt Complex) Patient hx anesthesia problems: none Family hx anesthesia problems: none Results Review: All pre-operative results and documents have been reviewed as part of the pre-operative evaluation. [facility] Past Medical History Medical History Hives Encounter for routine adult health examination with abnormal findings Constipation Dermatographism Foot drop Encounter for Medicare annual wellness exam Back pain Hypersomnolence Spasticity as late effect of cerebrovascular accident (CVA) Hemiparesis affecting left side as late effect of stroke Fatigue Heart murmur Skin plaque Ringworm Renal cyst Irregular heartbeat Elevated glucose Dizziness Chronic right-sided thoracic back pain Follow up RBBB (right bundle branch block) Prostate cancer screening Encounter for preventive health examination Vitamin D deficiency Cervicalgia Right ureteral stone Kidney stone with hx of surgical resection Vitreous floaters of right eye BMI 40.0-44.9, adult Varicosities of leg Anxiety PVCs (premature ventricular contractions) History of kidney stones Scoliosis Sciatica of right side Granuloma annulare Chronic low back pain Pre-diabetes Palpitations Encounter for routine adult health examination without abnormal findings On fci drug therapy Hyperlipidemia Benign essential hypertension Surgical History Surgical History S/P cataract surgery S/P hernia surgery Family History Family History Father Atherosclerosis Mother COPD (chronic obstructive pulmonary disease) Social History Social History Social History: Lifelong nonsmoker. Drinks 1 alcoholic drink per month on average. No drug use. Full code. He nominates his to be the individual would make medical decisions for him if he is unable. Smoking status: Never smoker Alcohol intake: current Drinks per week: 1 Alcohol use details: STATES MAYBE 2 DRINKS A MONTH Substance use: never Substance use type: does not use Do You Feel Safe in your Home?: Yes Lack of Transportation: No Lack of Food: Never True Current Housing: I Have Housing Concerned About Future Housing: No Difficulty Paying Gas/Electric Bills: No Difficulty Paying for Meds: No Currently Unemployed: No Education: Associate Degree Difficulty w/ Childcare or Family Care: No Living arrangements: with family Gender identity (if verbalized by the patient): Male Spiritual care concerns: No Anes - Eval Final PreProcedure Day of Procedure 07/15/25 13:35 Patient weight: obese Heart: regular rate and rhythm Lungs: clear to auscultation Airway: Mallampati scale class II Neurological: alert and oriented Last oral intake: >/= 8 hours ASA classification: II Emergent: no Anesthetic plan: proceed Anesthesia type and monitoring: general GIVS and standard monitoring Results Review: All pre-operative results and documents have been reviewed as part of the pre-operative evaluation. Informed Consent: The patient's anesthetic plan and its attendant risks and benefits were discussed with the patient/family/POA. Questions were solicited and answers provided to the satisfaction of the patient/family/POA.
[2025-07-15 14:07] VITALS: BP 90/64; PULSE 66; RESP 16; O2SAT 97
[2025-07-15 14:17] VITALS: BP 105/59; PULSE 70; RESP 21; O2SAT 98
[2025-07-15 14:27] VITALS: BP 124/73; PULSE 67; RESP 24; O2SAT 97
== END 2025-07-15 14:40 | disposition home or self-care (01) ==
PROVIDERS: PCP Internal Medicine; Referring Provider Internal Medicine; Visit Provider Internal Medicine Gastroenterology
PROC: 0DJD8ZZ Inspection of Lower Intestinal Tract, Via Natural or Artificial Opening Endoscopic (ICD-10-PCS; CPT 45378; principal; 2025-07-15 13:30)
DX: Z12.11 Encounter for screening for malignant neoplasm of colon (principal); K57.30 Diverticulosis of large intestine without perforation or abscess without bleeding; K64.8 Other hemorrhoids
CPT/HCPCS: G0121; J2003; J2704; J7120